=== PATIENT | male | born 1945 | race Asian ===

== ENCOUNTER 2017-11-15 00:53 | Outpatient (CLI) | payer MEDICARE, BC ==
[~2017-11-15 00:53] MED LIST: ALLO100T PO; ASPI81TA52 PO; ATEN-169 PO; CHOL100046 PO; FINA5TAB11 PO; FOLI0.4T2 PO; LISI-600 PO; LOVA20TA2 PO; NITR0.4T51 SL; POTA99TA25 PO; SAW450CA7 PO; TERA2CAP4 PO; VITA400C65 PO
== END 2017-11-15 23:59 | disposition home or self-care (01) ==
LOC: DIABETIC 00:53
PROVIDERS: ATTEND Family Medicine
DX: E11.65 Type 2 diabetes mellitus with hyperglycemia (principal)
CPT/HCPCS: G0108

== ENCOUNTER 2018-02-14 04:47 | Outpatient (CLI) | payer MEDICARE, BC | END 2018-02-14 23:59 | disposition home or self-care (01) | LOC: DIABETIC 04:47 | PROVIDERS: ATTEND Family Medicine | DX: E11.65 Type 2 diabetes mellitus with hyperglycemia (principal) | CPT/HCPCS: G0108 ==

== ENCOUNTER 2018-12-09 21:44 | Emergency (ER) | payer MEDICARE, BC ==
[~2018-12-09] VITALS: Ht 162.6 cm; Wt 65.5 kg
[2018-12-09 21:52] VITALS: BP 155/83
[2018-12-09] MEDS ORDERED: LIDOcaine 2% 10ml TOPICAL JELLY (Urojet) MM ONE (22:15)
[2018-12-09 22:27] LABS: CLARITY,URINE CLOUDY (Clear); COLOR,URINE RED (Yellow)
[2018-12-09 22:33] LABS: UA COLLECTION TYPE CLN CATCH MIDSTREAM
[2018-12-09 22:35] LABS: BACTERIA,URINE NONE SEEN /HPF (Neg); RBC,URINE TNTC /HPF (0-2); SQUAMOUS EPITHELIAL CELL,UR FEW /LPF (FEW); WBC,URINE 0-4 /HPF (0-4)
[2018-12-09] MEDS ORDERED: tranexamic acid inj. 1,000 MG in normal saline 100ml IV soln 100 ML IV ONE (23:10)
== END 2018-12-10 00:32 | disposition home or self-care (01) ==
LOC: ER 21:44
DX: R31.9 Hematuria, unspecified (principal); I25.10 Atherosclerotic heart disease of native coronary artery without angina pectoris; Z90.89 Acquired absence of other organs; Z95.1 Presence of aortocoronary bypass graft; Z79.82 Long term (current) use of aspirin; Z79.899 Other long term (current) drug therapy
CPT/HCPCS: 51700; 81001; 96365; 99284; J7030

== ENCOUNTER 2021-01-28 10:04 | Day surgery (SDC) | payer MEDICARE, BC ==
[2021-01-23 11:26] LABS: BASOPHILS % (AUTO) 0.3 % (0-1); EOSINOPHILS # (AUTO) 0.2 X10'3 (0-0.9); EOSINOPHILS % (AUTO) 3.1 % (0-6); HEMATOCRIT 47.6 % (42.0-52.0); HEMOGLOBIN 15.9 g/dl (14.0-17.9); LYMPHOCYTES # (AUTO) 1.7 X10'3 (1.1-4.8); LYMPHOCYTES % (AUTO) 30.9 % (21-51); MEAN CORPUSCULAR HEMOGLOBIN 31.9 PG (27.0-31.0); MEAN CORPUSCULAR HGB CONC 33.4 g/dL (33.0-36.5); MEAN CORPUSCULAR VOLUME 95.7 FL (78-98); MEAN PLATELET VOLUME 7.2 FL (7.4-10.4); MONOCYTES # (AUTO) 0.6 X10'3 (0-0.9); NEUTROPHILS # (AUTO) 2.9 X10'3 (1.8-7.7); NEUTROPHILS % (AUTO) 53.7 % (42-75); PLATELET COUNT 208 X10'3 (140-440); RED BLOOD COUNT 4.98 X10'6 (4.70-6.10); RED CELL DISTRIBUTION WIDTH 14.3 % (11.5-14.5); WHITE BLOOD COUNT 5.4 X10'3 (4.5-11.0)
[2021-01-23 11:41] LABS: ALANINE AMINOTRANSFERASE 43 U/L (12-78); ALBUMIN 4.3 G/DL (3.4-5.0); ALBUMIN/GLOBULIN RATIO 1.3 (1.1-1.5); ALKALINE PHOSPHATASE 56 IU/L (46-116); ANION GAP 9 (8-16); ASPARTATE AMINO TRANSFERASE 30 U/L (10-37); BILIRUBIN,TOTAL 1.7 MG/DL (0.1-1.0); BLOOD UREA NITROGEN 30 MG/DL (7-18); CALCIUM 9.4 MG/DL (8.5-10.1); CHLORIDE 102 MMOL/L (99-107); CREATININE 1.11 MG/DL (0.60-1.10); GLUCOSE 143 MG/DL (70-104); POTASSIUM 4.8 MMOL/L (3.5-5.1); SODIUM 140 MMOL/L (135-145); TOTAL CARBON DIOXIDE 29.1 MMOL/L (24-32); TOTAL PROTEIN 7.6 G/DL (6.4-8.2); eGFR 65 ML/MIN
[2021-01-23 11:49] LABS: PARTIAL THROMBOPLASTIN TIME 26 SECONDS (22-32)
[2021-01-28] VITALS (11 sets, daily range): BP systolic 96–142; BP diastolic 48–86
[~2021-01-28] VITALS: Ht 162.6 cm; Wt 66.2 kg
[~2021-01-28 10:04] MED LIST changes: -FOLI0.4T2 PO; +FOLI0.4T6 PO; -LISI-600 PO; +LISI20TA28 PO; +VITA-134 PO; -VITA400C65 PO
[2021-01-28] MEDS ORDERED: LORazepam 0.5 MG tablet PO PRN (10:40)
[2021-01-28] MEDS ORDERED: dextrose 50%-water 50ml dispensing syringe IV PRN ×2 (10:40)
[2021-01-28] MEDS ORDERED: nitroGLYCERIN 0.4mg SUBLingual tab SL PRN (10:40)
[2021-01-28] MEDS ORDERED: MESSAGE TO PHARMACY PO ONE (10:40)
[2021-01-28] MEDS ORDERED: glucagon, human recombinant 1mg kit SUBCUT PRN (10:40)
[2021-01-28] MEDS ORDERED: normal saline 1,000 ML IV SCH (10:40)
[2021-01-28] MEDS ORDERED: dextrose ORAL solution 15 GM/59 ML bottle PO PRN ×2 (10:40)
[2021-01-28] MEDS ORDERED: diphenhydrAMINE 25mg capsule PO PRN (10:40)
[2021-01-28] MEDS ORDERED: insulin Lispro (HumaLOG) vial - multi-dose SQ SCH (10:40)
[2021-01-28] MEDS ORDERED: LUTE1CAP5 PO (10:45)
[2021-01-28] MEDS ORDERED: AMA1T PO (10:45)
[2021-01-28] MEDS ORDERED: GLUC-150 PO (10:46)
[2021-01-28] MEDS ORDERED: iohexol 350 MG/ML 50ML vial IV ONE ×3 (11:47→12:38)
[2021-01-28] MEDS ORDERED: LIDOcaine 1% (10mg/ml)w/preservative injection 20ml MDV ONE (11:47)
[2021-01-28] MEDS ORDERED: midazolam 1 mg/ML 2ml injection ONE (11:47)
[2021-01-28] MEDS ORDERED: fentaNYL/PF 50MCG/1 ML 2ML syringe ONE (11:47)
[2021-01-28] MEDS ORDERED: iohexol 350MG/ML 100ml bottle IV ONE (11:48)
[2021-01-28] MEDS ORDERED: acetaminophen 325mg tablet PO PRN (13:45)
[2021-01-28] MEDS ORDERED: HYDROcodone/acetaminophen 5mg/325mg tablet PO PRN (13:45)
[2021-01-28] MEDS ORDERED: OXAZEpam 15mg capsule PO PRN (13:45)
[2021-01-28] MEDS ORDERED: proCHLORperazine 10 MG/2 ml inj IV PRN (13:45)
[2021-01-28] MEDS ORDERED: ondansetron/PF 4mg/2ml inj IV PRN (13:45)
[2021-01-28] MEDS ORDERED: normal saline 1000ml 1,000 ML IV SCH (13:45)
[2021-01-28] MEDS ORDERED: HYDROcodone/acetaminophen 10/325mg tab PO PRN (13:45)
--- NOTE | 2021-01-28 16:30 | NUR ---
De Jesus catheter placed by [facility] inpatient nursing aide with instructor at bedside. pt has blood tinged urine draining from de jesus catheter. per pt his urine is normally bloody after having TURP.
--- NOTE | 2021-01-28 20:39 | NUR ---
pts called stating pt is unable to void. he thinks that he has a blood clot and that is the reason that he cannot void. recommended to take pt to the ER for eval.
[2021-01-28] MEDS ORDERED: insulin glargine (Lantus) pen - multi-dose SQ SCH (21:00)
[2021-01-29] MEDS ORDERED: CEPH250T PO (02:47)
== END 2021-01-28 19:10 | disposition home or self-care (01) ==
LOC: SSTAY O 10:04
PROVIDERS: ATTEND Internal Medicine Cardiovascular Disease
DX: R94.39 Abnormal result of other cardiovascular function study (principal); I25.810 Atherosclerosis of coronary artery bypass graft(s) without angina pectoris; I25.82 Chronic total occlusion of coronary artery; I10 Essential (primary) hypertension; M10.9 Gout, unspecified; E78.5 Hyperlipidemia, unspecified; J44.9 Chronic obstructive pulmonary disease, unspecified; E11.9 Type 2 diabetes mellitus without complications; N40.0 Benign prostatic hyperplasia without lower urinary tract symptoms; Z90.5 Acquired absence of kidney; Z90.79 Acquired absence of other genital organ(s); Z95.1 Presence of aortocoronary bypass graft; Z79.899 Other long term (current) drug therapy; Z87.891 Personal history of nicotine dependence; Z79.01 Long term (current) use of anticoagulants
CPT/HCPCS: 36415; 71046; 80053; 82948; 85025; 85610; 85730; 93005; 93459; 99152; 99153; C1760; C1769; J1644; J2001; J2250; J3010; J7030; Q0163; Q9967; A4620; A6258; J1815

== ENCOUNTER 2021-01-28 21:02 | Emergency (ER) | payer MEDICARE, BC ==
[~2021-01-28] VITALS: Ht 162.6 cm; Wt 65.9 kg
[~2021-01-28 21:02] MED LIST changes: +AMA1T PO; +GLUC-150 PO; +LUTE1CAP5 PO
[2021-01-28 23:18] LABS: BASOPHILS % (AUTO) 0.2 % (0-1); EOSINOPHILS # (AUTO) 0.1 X10'3 (0-0.9); EOSINOPHILS % (AUTO) 0.9 % (0-6); HEMATOCRIT 46.2 % (42.0-52.0); HEMOGLOBIN 15.2 g/dl (14.0-17.9); LYMPHOCYTES # (AUTO) 1.8 X10'3 (1.1-4.8); LYMPHOCYTES % (AUTO) 14.8 % (21-51); MEAN CORPUSCULAR HEMOGLOBIN 31.2 PG (27.0-31.0); MEAN CORPUSCULAR HGB CONC 32.9 g/dL (33.0-36.5); MEAN PLATELET VOLUME 7.3 FL (7.4-10.4); MONOCYTES # (AUTO) 1.2 X10'3 (0-0.9); MONOCYTES % (AUTO) 10.4 % (2-12); NEUTROPHILS # (AUTO) 8.7 X10'3 (1.8-7.7); NEUTROPHILS % (AUTO) 73.7 % (42-75); PLATELET COUNT 217 X10'3 (140-440); RED BLOOD COUNT 4.87 X10'6 (4.70-6.10); RED CELL DISTRIBUTION WIDTH 14.2 % (11.5-14.5); WHITE BLOOD COUNT 11.9 X10'3 (4.5-11.0)
[2021-01-28 23:32] LABS: ALANINE AMINOTRANSFERASE 38 U/L (12-78); ALBUMIN 4.2 G/DL (3.4-5.0); ALBUMIN/GLOBULIN RATIO 1.4 (1.1-1.5); ALKALINE PHOSPHATASE 53 IU/L (46-116); ANION GAP 12 (8-16); ASPARTATE AMINO TRANSFERASE 24 U/L (10-37); BLOOD UREA NITROGEN 27 MG/DL (7-18); BUN/CREATININE RATIO 24.1 (5.4-32.0); CALCIUM 9.2 MG/DL (8.5-10.1); CHLORIDE 103 MMOL/L (99-107); CREATININE 1.12 MG/DL (0.60-1.10); GLUCOSE 91 MG/DL (70-104); POTASSIUM 4.1 MMOL/L (3.5-5.1); SODIUM 138 MMOL/L (135-145); TOTAL CARBON DIOXIDE 23.5 MMOL/L (24-32); TOTAL PROTEIN 7.2 G/DL (6.4-8.2); eGFR 64 ML/MIN
--- NOTE | 2021-01-28 23:40 | NUR ---
PT TO ROOM, ASSUMED CARE
[2021-01-28] MEDS ORDERED: LIDOcaine 2% 10ml TOPICAL JELLY (Urojet) TP ONE (23:50)
--- NOTE | 2021-01-29 00:22 | NUR ---
attempted de jesus 3 times with regular 16f, then a 18 coude, and then a 14 coude. ERP aware. lilianao used.
--- NOTE | 2021-01-29 00:28 | NUR ---
per ERP, attempt once more with 16 coude. Marizol at bedside to attempt
--- NOTE | 2021-01-29 00:31 | NUR ---
fourth attempt at de jesus with 16 coude unsuccessful.
[2021-01-29] MEDS ORDERED: cephalexin 250mg capsule PO ONE (02:45)
[2021-01-29] MEDS ORDERED: CEPH250T PO (02:47)
--- NOTE | 2021-01-29 02:55 | NUR ---
UNABLE TO LOCATE BLADDER SCANNER IN HOSPITAL AFTER MULTIPLE ATTEMPTS. RESIDENCE LIFE DIRECTOR AWARE. UNABLE TO COMPLETE TASK
--- NOTE | 2021-01-29 03:05 | NUR ---
UROLOGIST INSERTED BRENNAN, 700CC DARK RED URINE OUPUT.
--- NOTE | 2021-01-29 03:10 | NUR ---
PER UROLOGIST, IRRIGATE BLADDER AND GIVE ANTIBIOTIC. RN MEDICATED AND IRRIGATED BLADDER.
[2021-01-29 03:31] LABS: UA COLLECTION TYPE NON-SPECIFIED
[2021-01-29 03:32] LABS: CLARITY,URINE Turbid (Clear); COLOR,URINE Red (Yellow)
[2021-01-29 03:34] VITALS: BP 123/68
[2021-01-29 03:34] LABS: BACTERIA,URINE NONE SEEN /HPF (Neg); RBC,URINE TNTC /HPF (0-2); SQUAMOUS EPITHELIAL CELL,UR NONE SEEN /LPF (FEW); WBC,URINE 0-4 /HPF (0-4)
--- NOTE | 2021-01-29 03:34 | NUR ---
pt given leg bag for home use, will use larger de jesus bag at night
--- NOTE | 2021-01-29 04:03 | NUR ---
PT LEFT WITHOUT HIS PRESCRIPTION, WAS CALLED AND NOTIFIED. PRESCRIPTION WAS CALLED IN TO PT'S PHARMACY FOR HIM
== END 2021-01-29 03:36 | disposition home or self-care (01) ==
LOC: ER 21:02
DX: R33.9 Retention of urine, unspecified (principal); R31.9 Hematuria, unspecified; I25.10 Atherosclerotic heart disease of native coronary artery without angina pectoris; Z85.9 Personal history of malignant neoplasm, unspecified; Z98.890 Other specified postprocedural states; Z79.82 Long term (current) use of aspirin; Z79.2 Long term (current) use of antibiotics; Z79.899 Other long term (current) drug therapy
CPT/HCPCS: 36415; 51702; 80053; 81001; 85025; 99284

== ENCOUNTER 2022-06-21 11:11 | Emergency (ER) | payer MEDICARE, BC ==
[~2022-06-21] VITALS: Ht 162.6 cm; Wt 63.6 kg
[~2022-06-21 11:11] MED LIST changes: -SAW450CA7 PO; -TERA2CAP4 PO
[2022-06-21 11:58] LABS: BASOPHILS % (AUTO) 0.2 % (0-1); EOSINOPHILS # (AUTO) 0.2 X10'3 (0-0.9); EOSINOPHILS % (AUTO) 2.9 % (0-6); HEMATOCRIT 32.5 % (42.0-52.0); HEMOGLOBIN 10.9 g/dl (14.0-17.9); LYMPHOCYTES # (AUTO) 0.8 X10'3 (1.1-4.8); LYMPHOCYTES % (AUTO) 13.9 % (21-51); MEAN CORPUSCULAR HEMOGLOBIN 32.8 PG (27.0-31.0); MEAN CORPUSCULAR HGB CONC 33.5 g/dL (33.0-36.5); MEAN CORPUSCULAR VOLUME 97.9 FL (78-98); MEAN PLATELET VOLUME 7.4 FL (7.4-10.4); MONOCYTES # (AUTO) 0.6 X10'3 (0-0.9); MONOCYTES % (AUTO) 10.1 % (2-12); NEUTROPHILS # (AUTO) 4.2 X10'3 (1.8-7.7); NEUTROPHILS % (AUTO) 72.9 % (42-75); PLATELET COUNT 231 X10'3 (140-440); RED BLOOD COUNT 3.32 X10'6 (4.70-6.10); RED CELL DISTRIBUTION WIDTH 14.8 % (11.5-14.5); WHITE BLOOD COUNT 5.8 X10'3 (4.5-11.0)
[2022-06-21 12:10] LABS: ALANINE AMINOTRANSFERASE 61 U/L (12-78); ALBUMIN 3.7 G/DL (3.4-5.0); ALBUMIN/GLOBULIN RATIO 1.2 (1.1-1.5); ALKALINE PHOSPHATASE 59 IU/L (46-116); ANION GAP 8 (8-16); ASPARTATE AMINO TRANSFERASE 35 U/L (10-37); BILIRUBIN,TOTAL 1.3 MG/DL (0.1-1.0); BLOOD UREA NITROGEN 19 MG/DL (7-18); BUN/CREATININE RATIO 16.7 (5.4-32.0); CALCIUM 8.7 MG/DL (8.5-10.1); CHLORIDE 100 MMOL/L (99-107); CREATININE 1.14 MG/DL (0.60-1.10); GLUCOSE 290 MG/DL (70-104); POTASSIUM 4.2 MMOL/L (3.5-5.1); SODIUM 134 MMOL/L (135-145); TOTAL CARBON DIOXIDE 26.1 MMOL/L (24-32); TOTAL PROTEIN 6.7 G/DL (6.4-8.2); eGFR 63 ML/MIN
[2022-06-21 12:42] VITALS: BP 136/77
== END 2022-06-21 12:44 | disposition home or self-care (01) ==
LOC: ER 11:12
DX: R07.89 Other chest pain (principal); I25.10 Atherosclerotic heart disease of native coronary artery without angina pectoris; Z85.9 Personal history of malignant neoplasm, unspecified; Z98.890 Other specified postprocedural states; Z79.82 Long term (current) use of aspirin; Z79.899 Other long term (current) drug therapy
CPT/HCPCS: 36415; 71045; 80053; 83880; 84484; 85025; 93005; 99285